=== PATIENT | male | born 1960 | race Caucasian/White ===

== ENCOUNTER → 2019-09-26 20:07 | Outpatient (CLI) | payer OTHER, SELFPAY | PROVIDERS: Visit Provider Physician Assistant | DX: J02.9 Acute pharyngitis, unspecified (principal) | CPT/HCPCS: 87070; 87077; 87185 ==

== ENCOUNTER 2021-03-08 18:04 | Emergency (ER) | payer OTHER, SELFPAY ==
[2021-03-08] VITALS (85 sets, daily range): BP systolic 106–172; BP diastolic 65–97; PULSE 71–223; RESP 12–31; TEMP 35.6; O2SAT 96–99
--- NOTE | 2021-03-08 18:21 | DI.RAD.S_ITS ---
PROCEDURE: XR CHEST 1V INDICATIONS: chest pain TECHNIQUE: One view of the chest was acquired. COMPARISON: None. FINDINGS: Surgical changes and devices: None. Lungs and pleura: Lungs are clear. No pleural effusions or pneumothorax. Mediastinum: Mediastinal contours appear normal. Heart size is normal. Bones and chest wall: No suspicious bony lesions. Overlying soft tissues appear unremarkable. IMPRESSION: No acute cardiopulmonary pathology. Dictated by: Aditya Soler M.D. on 03/08/2021 at 18:44 Approved by: Aditya Soler M.D. on 03/08/2021 at 18:44
[2021-03-08] MEDS: propofoL 200 MG/20 ML VIAL IV (18:23)
[2021-03-08 18:32] LABS: Alanine Aminotransferase 29 IU/L (<50); Albumin 4.5 g/dL (3.5-5.0); Albumin Globulin Ratio 1.7 (1.0-2.8); Alkaline Phosphatase 102 U/L (38-126); Aspartate Aminotransferase 24 IU/L (17-59); BUN Creatinine Ratio 23.1 (6-22); Bilirubin Total 0.4 mg/dL (0.2-1.3); Blood Urea Nitrogen 30 mg/dL (9-20); Calcium 9.7 mg/dL (8.4-10.2); Carbon Dioxide 24 mmol/L (22-32); Chloride 107 mmol/L (98-107); Creatine Kinase 114 U/L (55-170); Estimated Glomerular Filt Rate 55.9 mL/min (>60); Globulin 2.7 g/dL (1.7-4.1); Glucose 229 mg/dL (80-110); HEMOLYSIS < 15 (0-50); Lipase 72 U/L (23-300); Potassium 4.7 mmol/L (3.4-5.1); Sodium 142 mmol/L (137-145); Total Protein 7.2 g/dL (6.3-8.2)
[2021-03-08] MEDS: ADENOSINE 6 MG/2 ML VIAL 18 MG IV (18:32)
[2021-03-08 18:34] LABS: Add Manual Diff / Slide Review NO; Basophils Absolute Auto 100 /uL (0-100); Basophils Percent Auto 0.7 % (0-2); Eosinophils Absolute Auto 500 /uL (0-450); Eosinophils Percent Auto 3.6 % (2-4); Hematocrit 45.4 % (41-53); Hemoglobin 15.2 g/dL (13.5-17.5); Lymphocytes Absolute Auto 1500 /uL (1100-4500); Mean Corpuscular HGB Conc 33.5 % (30-36); Mean Corpuscular Hemoglobin 31.5 PG (26-34); Mean Corpuscular Volume 93.9 fL (80-100); Monocytes Absolute Auto 1200 /uL (0-900); Monocytes Percent Auto 9.4 % (3-14); Neutrophils Absolute Auto 9500 /uL (1500-7000); Neutrophils Percent Auto 74.3 % (50-75); Platelet Count 234 X10^3/uL (150-400); Red Blood Cell Count 4.83 X10^6/uL (4.5-5.9); Red Cell Distribution Width 13.6 % (11.6-14.8); White Blood Cell Count 12.8 X10^3/uL (4.5-11.0)
[2021-03-08 18:44] LABS: Troponin I 0.042 ng/mL (0.01-0.034)
[2021-03-08 18:47] LABS: CKMB % Relative Index 1.9 % (1.5-5.0)
[2021-03-08 19:20] LABS: COVID19 -Nasal RAPID Negative (Negative)
[2021-03-08 20:12] LABS: Magnesium 1.6 mg/dL (1.6-2.3)
[2021-03-08 20:27] LABS: UR Morphine/Opiate cutoff 300 Negative (Negative); Ur Creatinine Normal (Normal); Ur Specific Gravity Normal (Normal); Urine Amphetamines Negative (Negative); Urine Barbiturates Negative (Negative); Urine Benzodiazepines Negative (Negative); Urine Cocaine Negative (Negative); Urine MDMA Negative (Negative); Urine Methadone Negative (Negative); Urine Methamphetamines Negative (Negative); Urine Oxycodone Negative (Negative); Urine Phencyclidine Negative (Negative); Urine Tetrahydrocannabinol Negative (Negative); Urine Tricyclic Antidepressant Negative (Negative); Urine pH Normal (Normal)
--- NOTE | 2021-03-08 20:31 | ED.ARRPALP ---
HPI - Arrhythmia/Palpitations General Chief Complaint: Arrhythmia/Palpitations Stated Complaint: FAST HEART RATE SWEATING Time Seen by Provider: 03/08/21 18:05 Source: patient Mode of arrival: Family Vehicle Limitations: no limitations History of Present Illness HPI narrative: 60-year-old gentleman with a history of insulin-dependent type 2 diabetes, hypertension, hyperlipidemia and no prior cardiac events comes in complaining of palpitations with occasional dizziness that had been going on for approximately hour prior to arrival. He denies chest pain does note a bit of diaphoresis, no nausea, no dyspnea or orthopnea. Does not note that he had been feeling worse throughout the day has not been having increasing exertional dyspnea or other types of chest pain. He has got no recent fevers, cough, chills, abdominal pain, vomiting, diarrhea. Related Data Home Medications Medication Instructions Recorded Confirmed glimepiride PO 09/26/19 09/26/19 lisinopril PO 09/26/19 09/26/19 metformin PO 09/26/19 09/26/19 omeprazole PO 09/26/19 09/26/19 pravastatin PO 09/26/19 09/26/19 Allergies Allergy/AdvReac Type Severity Reaction Status Date / Time No Known Drug Allergies Allergy Verified 03/08/21 18:25 Review of Systems Review of Systems Narrative: Remainder of complete review of systems is otherwise unremarkable except for that included in the HPI. Patient History Medical History Diabetes Hyperlipidemia Hypertension Sinusitis Ventricular tachycardia Social History Smoking Status: Current every day smoker Smoking Status: Current every day smoker tobacco type: cigarettes alcohol intake frequency: 0-2 drinks per day Substance Use Type: does not use Exam Narrative Exam Narrative: General: Pale, mildly diaphoretic but Able to give a complete and coherent history. Well-nourished well-developed HEENT: Moist mucous membranes, normal sclera with reactive pupils, Neck: No JVD, supple Respiratory: Lungs are clear to auscultation, no wheezing no rales no rhonchi. Full and symmetrical air movement Cardiac: Very rapid rate, to rapid for further evaluation Abdomen: Soft, nontender, good bowel tones, no flank pain Skin: Pale with mild diaphoresis Neurologic: Grossly neurologically intact with no obvious asymmetries or abnormalities Extremities: No trauma, well perfused Psych: Cooperative, appropriate insight and affect Initial Vital Signs Initial Vital Signs: Vital Signs Temperature 96.0 F L 03/08/21 18:05 Pulse Rate 223 H 03/08/21 18:05 Respiratory Rate 24 03/08/21 18:05 Blood Pressure 125/74 03/08/21 18:05 Pulse Oximetry 97 03/08/21 18:05 Procedures Cardioversion Time of Cardioversion: 06:23 Indication: Unstable ventricular tachycardia Stability: Unstable Number of attempts (shocks): 1 Joules used: 120 Cardiac rhythm post-cardioversion: Sinus rhythm Procedural Sedation Time of procedure: 18:23 Consent signed: No Time out performed: Yes Indication: cardioversion (Unstable ventricular tachycardia) ASA Class: II Mallampati Airway Classification: Class II Time of Last PO Intake: 12:30 Preparation: surveillance system monitor applied, pulse oximeter, capnometry used, supplemental O2 applied, suction/airway equipment at bedside and IV secured IV Propofol dose (mg): 60 Intraservice time/total sedation time (min): 8 ED Sedation Level: Moderate (Concious) Patient Tolerated Procedure: Well Complications: none Course Course Course Narrative: 830 reviewed care with Cardiology, Dr. Waldrop, agreed with transfer to facility with medical laboratory technical officer capacity, continue trending troponins and heparin [facility] beds [facility] beds 935pm [facility], pcu beds. Discussed care with Dr Mildred Andre, hospitalist. Accepts care. 2nd trop pending. Will let her know if increasing significantly Orders Ordered: Discontinued Medications Heparin Sodium (Porcine) (Heparin 5,000 Unit/Ml Vial) 5,000 unit IV NOW ONE Stop: 03/08/21 21:04 Last Admin: 03/08/21 21:27 Dose: 5,000 unit Documented by: SAUD Heparin Sodium/Dextrose (Heparin Drip) 25,000 unit in 500 mls @ 20 mls/hr IV CONT KENNEDY; Protocol Last Titration: 03/08/21 22:55 Dose: 1,000 units/hr, 20 mls/hr Documented by: Admin: 03/08/21 21:33 Dose: 1,000 units/hr, 20 mls/hr Documented by: SAUD Lorazepam (Lorazepam 0.5 Mg Tablet) 0.5 mg PO NOW ONE Stop: 03/08/21 22:26 Last Admin: 03/08/21 22:34 Dose: 0.5 mg Documented by: SAUD Metoprolol Tartrate (Metoprolol Ir 25 Mg Tablet) 25 mg PO NOW ONE Stop: 03/08/21 21:05 Last Admin: 03/08/21 21:26 Dose: 25 mg Documented by: SAUD Nicotine (Nicotine 21 Mg Patch) 21 mg TOP NOW ONE Stop: 03/08/21 22:21 Vital Signs Vital signs: Vital Signs - 8 hr 03/08/21 22:30 03/08/21 22:32 03/08/21 22:34 Pulse Rate 82 80 75 Respiratory Rate 22 28 H 18 Blood Pressure 172/97 H 03/08/21 22:36 03/08/21 22:38 03/08/21 22:40 Pulse Rate 76 73 76 Respiratory Rate 21 16 31 H Blood Pressure MDM - Arrhythmia/Palpitations Lab Data Result diagrams: 03/08/21 18:16 03/08/21 18:16 Labs: Lab Results 03/08/21 03/08/21 03/08/21 Range/Units 18:16 18:16 18:16 WBC 12.8 H (4.5-11.0) X10^3/uL RBC 4.83 (4.5-5.9) X10^6/uL Hgb 15.2 (13.5-17.5) g/dL Hct 45.4 (41-53) % MCV 93.9 (80-100) fL MCH 31.5 (26-34) PG MCHC 33.5 (30-36) % RDW 13.6 (11.6-14.8) % Plt Count 234 (150-400) X10^3/uL Neut % (Auto) 74.3 (50-75) % Lymph % (Auto) 12.0 L (25-40) % [place] % (Auto) 9.4 (3-14) % Eos % (Auto) 3.6 (2-4) % Baso % (Auto) 0.7 (0-2) % Neut # (Auto) 9500 H (3617-0906) /uL Lymph # (Auto) 1500 (9229-9444) /uL [place] # (Auto) 1200 H (0-900) /uL Eos # (Auto) 500 H (0-450) /uL Baso # (Auto) 100 (0-100) /uL Sodium 142 (137-145) mmol/L Potassium 4.7 (3.4-5.1) mmol/L Chloride 107 (98-107) mmol/L Carbon Dioxide 24 (22-32) mmol/L BUN 30 H (9-20) mg/dL Creatinine 1.30 H (0.66-1.25) mg/dL Estimated GFR 55.9 L (>60) mL/min BUN/Creatinine Ratio 23.1 H (6-22) Glucose 229 H (80-110) mg/dL Calcium 9.7 (8.4-10.2) mg/dL Magnesium 1.6 (1.6-2.3) mg/dL Total Bilirubin 0.4 (0.2-1.3) mg/dL AST 24 (17-59) IU/L ALT 29 (<50) IU/L Alkaline Phosphatase 102 (38-126) U/L Total Creatine Kinase 114 (55-170) U/L CK-MB (CK-2) 2.20 (<2.37) ng/mL CK-MB (CK-2) Rel Index 1.9 (1.5-5.0) % Troponin I 0.042 H (0.01-0.034) ng/mL Total Protein 7.2 (6.3-8.2) g/dL Albumin 4.5 (3.5-5.0) g/dL Globulin 2.7 (1.7-4.1) g/dL Albumin/Globulin Ratio 1.7 (1.0-2.8) Lipase 72 (23-300) U/L TSH (0.47-4.68) uIU/mL U Opiates 300ng/mL cut (Negative) Ur Oxycodone Screen (Negative) Urine Methadone Screen (Negative) Ur Barbiturates Screen (Negative) U Tricyclic Antidepress (Negative) Ur Phencyclidine Scrn (Negative) Ur Amphetamines Screen (Negative) U Methamphetamines Scrn (Negative) Ur MDMA Scrn (Ecstasy) (Negative) U Benzodiazepines Scrn (Negative) Urine Cocaine Screen (Negative) U Marijuana (THC) Screen (Negative) SARS-CoV-2 (PCR) (Negative) 03/08/21 03/08/21 03/08/21 Range/Units 18:16 18:19 20:04 WBC (4.5-11.0) X10^3/uL RBC (4.5-5.9) X10^6/uL Hgb (13.5-17.5) g/dL Hct (41-53) % MCV (80-100) fL MCH (26-34) PG MCHC (30-36) % RDW (11.6-14.8) % Plt Count (150-400) X10^3/uL Neut % (Auto) (50-75) % Lymph % (Auto) (25-40) % [place] % (Auto) (3-14) % Eos % (Auto) (2-4) % Baso % (Auto) (0-2) % Neut # (Auto) (5532-1244) /uL Lymph # (Auto) (1724-4381) /uL [place] # (Auto) (0-900) /uL Eos # (Auto) (0-450) /uL Baso # (Auto) (0-100) /uL Sodium (137-145) mmol/L Potassium (3.4-5.1) mmol/L Chloride (98-107) mmol/L Carbon Dioxide (22-32) mmol/L BUN (9-20) mg/dL Creatinine (0.66-1.25) mg/dL Estimated GFR (>60) mL/min BUN/Creatinine Ratio (6-22) Glucose (80-110) mg/dL Calcium (8.4-10.2) mg/dL Magnesium (1.6-2.3) mg/dL Total Bilirubin (0.2-1.3) mg/dL AST (17-59) IU/L ALT (<50) IU/L Alkaline Phosphatase (38-126) U/L Total Creatine Kinase (55-170) U/L CK-MB (CK-2) (<2.37) ng/mL CK-MB (CK-2) Rel Index (1.5-5.0) % Troponin I (0.01-0.034) ng/mL Total Protein (6.3-8.2) g/dL Albumin (3.5-5.0) g/dL Globulin (1.7-4.1) g/dL Albumin/Globulin Ratio (1.0-2.8) Lipase (23-300) U/L TSH 2.42 (0.47-4.68) uIU/mL U Opiates 300ng/mL cut Negative (Negative) Ur Oxycodone Screen Negative (Negative) Urine Methadone Screen Negative (Negative) Ur Barbiturates Screen Negative (Negative) U Tricyclic Antidepress Negative (Negative) Ur Phencyclidine Scrn Negative (Negative) Ur Amphetamines Screen Negative (Negative) U Methamphetamines Scrn Negative (Negative) Ur MDMA Scrn (Ecstasy) Negative (Negative) U Benzodiazepines Scrn Negative (Negative) Urine Cocaine Screen Negative (Negative) U Marijuana (THC) Screen Negative (Negative) SARS-CoV-2 (PCR) Negative (Negative) 03/08/21 Range/Units 21:15 WBC (4.5-11.0) X10^3/uL RBC (4.5-5.9) X10^6/uL Hgb (13.5-17.5) g/dL Hct (41-53) % MCV (80-100) fL MCH (26-34) PG MCHC (30-36) % RDW (11.6-14.8) % Plt Count (150-400) X10^3/uL Neut % (Auto) (50-75) % Lymph % (Auto) (25-40) % [place] % (Auto) (3-14) % Eos % (Auto) (2-4) % Baso % (Auto) (0-2) % Neut # (Auto) (5882-6969) /uL Lymph # (Auto) (9993-9888) /uL [place] # (Auto) (0-900) /uL Eos # (Auto) (0-450) /uL Baso # (Auto) (0-100) /uL Sodium (137-145) mmol/L Potassium (3.4-5.1) mmol/L Chloride (98-107) mmol/L Carbon Dioxide (22-32) mmol/L BUN (9-20) mg/dL Creatinine (0.66-1.25) mg/dL Estimated GFR (>60) mL/min BUN/Creatinine Ratio (6-22) Glucose (80-110) mg/dL Calcium (8.4-10.2) mg/dL Magnesium (1.6-2.3) mg/dL Total Bilirubin (0.2-1.3) mg/dL AST (17-59) IU/L ALT (<50) IU/L Alkaline Phosphatase (38-126) U/L Total Creatine Kinase (55-170) U/L CK-MB (CK-2) (<2.37) ng/mL CK-MB (CK-2) Rel Index (1.5-5.0) % Troponin I 0.528 H* (0.01-0.034) ng/mL Total Protein (6.3-8.2) g/dL Albumin (3.5-5.0) g/dL Globulin (1.7-4.1) g/dL Albumin/Globulin Ratio (1.0-2.8) Lipase (23-300) U/L TSH (0.47-4.68) uIU/mL U Opiates 300ng/mL cut (Negative) Ur Oxycodone Screen (Negative) Urine Methadone Screen (Negative) Ur Barbiturates Screen (Negative) U Tricyclic Antidepress (Negative) Ur Phencyclidine Scrn (Negative) Ur Amphetamines Screen (Negative) U Methamphetamines Scrn (Negative) Ur MDMA Scrn (Ecstasy) (Negative) U Benzodiazepines Scrn (Negative) Urine Cocaine Screen (Negative) U Marijuana (THC) Screen (Negative) SARS-CoV-2 (PCR) (Negative) Urine Dip Bedside Urine Glucose 250 mg/dl Bedside Urine Bilirubin - Negative Bedside Urine Ketone - Negative Urine Specific [place] 1.020 Bedside Urine Occult Blood - Negative Bedside Urine pH 6 Bedside Urine Protein + 30 Bedside Urine Urobilinogen - Negative Bedside Urine Nitrite - Negative Bedside Urine Leukocytes - Negative Esterase ECG Data Interpretation: #1 18:16 Wide complex tachycardia at a rate of #2 1831 Post cardioversion Sinus tachycardia at a rate of [address] T wave changes Normal axis, normal intervals MDM Narrative Medical decision making narrative: 60-year-old gentleman walks into the emergency department complaining palpitations, diaphoresis and generally not feeling well. States the palpitations and rapid heart rate started approximately an hour prior to arrival. He was not complaining of chest pain. On arrival he was emergently taken back to room 10. With his wide complex tachycardia and no prior EKGs at a rate of essentially to 220, possibility of SVT was entertained and he was given 2 doses of adenosine while simultaneously preparing for emergent cardioversion. With 6 followed by 12 mg of adenosine there was no change at all to rhythm period that point was given a total of 60 mg of propofol and was successfully shock with 120 joules with return to sinus rhythm. Labs did show slightly elevated troponin. Care is reviewed with Cardiology. Recommendation was heparin and hospital admission to trend troponins and will likely need echocardiogram. No beds are available at [facility]. [facility] in [place] does have a bed and patient will be transferred to their hospitalist service for definitive care. Critical Care Time Critical Care Time Critical Care Time: Yes Total Critical Care Time: 34 Attestation: Critical care time is separate from other billable procedures. This critical care time includes consultation with family and other consulting doctors, review of records, and interpretation of data from labs, EKGs and imaging as well as managements of acute cardiac arrhythmia with emergent electrical cardioversion and concern for acute coronary syndrome with elevated troponin Discharge Plan Departure Patient Disposition: [facility] Clinical Impression: Ventricular tachycardia, Elevated troponin I level Prescriptions: No Action metformin PO RF: 0 glimepiride PO RF: 0 lisinopril PO RF: 0 pravastatin PO RF: 0 omeprazole PO RF: 0
[2021-03-08 20:56] LABS: TSH w/ Reflex to FT4 2.42 uIU/mL (0.47-4.68)
[2021-03-08] MEDS: METOPROLOL IR 25 MG TABLET PO (21:26)
[2021-03-08] MEDS: HEPARIN 5,000 UNIT/ML VIAL 5000 UNIT IV (21:27)
[2021-03-08] MEDS: HEPARIN DRIP 25,000 UNIT/500 ML IV.SOLN 20 UNIT IV (21:33)
[2021-03-08 22:10] LABS: Troponin I 0.528 ng/mL (0.01-0.034)
[2021-03-08] MEDS: LORazepam 0.5 MG TABLET PO (22:34)
== END 2021-03-08 22:59 | disposition short-term general hospital (02) ==
PROVIDERS: Emergency Provider Emergency Medicine
DX: I47.2 Ventricular tachycardia (principal); R77.8 Other specified abnormalities of plasma proteins; R42 Dizziness and giddiness; Z20.822 Contact with and (suspected) exposure to COVID-19
CPT/HCPCS: 36415; 71045; 80053; 80305; 81003; 82550; 82553; 83690; 83735; 84443; 84484; 85025; 87635; 92960; 93005; 93010; 96365; 96375; 99285; 99291; C9803; J0153; J1644; J2704

== ENCOUNTER → 2023-06-15 13:34 | Outpatient (CLI) | payer OTHER, SELFPAY ==
--- NOTE | 2023-06-15 13:36 | DI.RAD.S_ITS ---
PROCEDURE: XR FOOT LT MIN 3V INDICATIONS: Left foot injury TECHNIQUE: 3 views of the foot were acquired. COMPARISON: None. FINDINGS: Bones: No fractures or dislocations. No suspicious bony lesions. Soft tissues: No tibiotalar joint effusion. Achilles tendon appears normal. IMPRESSION: No evidence acute bony abnormality. If clinical suspicion and/or symptoms persist, further assessment with repeat plain films, or advanced imaging (e.g., CT, MRI, or bone scan) may be helpful for further assessment. Dictated by: Isidro Raygoza M.D. on 06/15/2023 at 16:24 Approved by: Isidro Raygoza M.D. on 06/15/2023 at 16:24
== END ==
PROVIDERS: PCP Internal Medicine; Referring Provider Nurse Practitioner Family; Visit Provider Nurse Practitioner Family
DX: S90.32XA Contusion of left foot, initial encounter (principal); X58.XXXA Exposure to other specified factors, initial encounter
CPT/HCPCS: 73630

== ENCOUNTER 2023-12-28 12:38 | Emergency (ER) | payer OTHER, SELFPAY ==
[2023-12-28 12:55] VITALS: BP 122/67; PULSE 73; RESP 16; TEMP 36.6; O2SAT 97; BMI 28.8
--- NOTE | 2023-12-28 12:59 | DI.RAD.S_ITS ---
PROCEDURE: XR ELBOW RT MIN 3V INDICATIONS: right elbow pain after hitting on sink TECHNIQUE: 3 views of the elbow were acquired. COMPARISON: None. FINDINGS: Bones: No fractures or dislocations. No suspicious bony lesions. Soft tissues: No elbow joint effusion. No suspicious soft tissue calcifications. IMPRESSION: No acute elbow fracture or significant joint effusion. Dictated by: Aditya Soler M.D. on 12/28/2023 at 14:09 Approved by: Aditya Soler M.D. on 12/28/2023 at 14:09
--- NOTE | 2023-12-28 15:22 | ED_ITS ---
HPI - Extremity Injury (Upper) <Dixie Christensen PA-C - Last Filed: 12/28/23 16:57> General Chief Complaint: Extremity Injury, Upper Stated Complaint: fall, arm injury Time Seen by Provider: 12/28/23 15:10 Source: patient Mode of arrival: Ambulatory History of Present Illness HPI narrative: 63-year-old male presents to the ED status post a right elbow injury sustained 3 days prior to arrival. Patient states that he sustained a mechanical fall in the bathroom, slipping and that his right elbow caught the sink. Since then patient has been complaining of right elbow pain. There is full range of motion. No numbness, tingling, weakness. Related Data Home Medications Medication Instructions Recorded Confirmed glimepiride PO 09/26/19 06/15/23 metformin PO 09/26/19 06/15/23 aspirin 81 mg tablet,delayed 81 mg PO DAILY 06/15/23 06/15/23 release metoprolol tartrate 1 tab PO BID 06/15/23 06/15/23 multivitamin (Multiple Vitamins 1 tab PO DAILY 06/15/23 06/15/23 tablet) Allergies Allergy/AdvReac Type Severity Reaction Status Date / Time No Known Drug Allergies Allergy Verified 12/28/23 12:59 Review of Systems <Dixie Christensen PA-C - Last Filed: 12/28/23 16:57> Constitutional Constitutional: Denies chills, Denies fatigue, Denies fever(s), Denies frequent falls, Denies lethargy and Denies weakness Eyes Eyes: Denies change in vision, Denies eye discharge, Denies irritation and Denies loss of vision ENT Ears, Nose, Mouth, and Throat: Denies change in voice, Denies dizziness, Denies neck pain, Denies sore throat and Denies throat swelling Cardiovascular Cardiovascular: Denies chest pain, Denies irregular heart rhythm, Denies lightheadedness, Denies palpitations, Denies dyspnea, Denies dyspnea on exertion and Denies orthopnea Respiratory Respiratory: Denies cough, Denies dyspnea, Denies dyspnea on exertion and Denies wheezing Gastrointestinal Gastrointestinal: Denies abdominal pain, Denies change in bowel habits, Denies diarrhea, Denies nausea and Denies vomiting Musculoskeletal Musculoskeletal: Denies neck pain and Denies numbness Comments: Right elbow pain Integumentary/Breasts Skin/Breast: Denies pruritus, Denies erythema, Denies rash and Denies wounds Neurologic Neurologic: Denies behavioral changes, Denies confusion, Denies dizziness, Denies frequent falls, Denies loss of vision, Denies numbness and Denies weakness Psychiatric Psychiatric: Denies anxiety, Denies behavioral changes, Denies confusion, Denies depression, Denies homicidal ideation and Denies suicidal ideation Endocrine Endocrine: Denies fatigue, Denies flushing and Denies palpitations Hematologic/Lymphatic Hematologic/Lymphatic: Denies easy bruising Allergic/Immunologic Allergic/Immunologic: Denies urticaria, Denies throat swelling and Denies wheezing Patient History <Dixie Christensen PA-C - Last Filed: 12/28/23 16:57> Medical History Hyperlipidemia Hypertension Diabetes Ventricular tachycardia Sinusitis Social History Smoking Status: Current every day smoker Smoking Status: Current every day smoker tobacco type: cigarettes alcohol intake frequency: 0-2 drinks per day Substance Use Type: does not use Exam <Dixie Christensen PA-C - Last Filed: 12/28/23 16:57> Narrative Exam Narrative: Const General:?cooperative, healthy appearing and comfortable [facility] Head:?normal to inspection Ears:?hearing grossly normal bilaterally Nose:?external nose normal Face and sinus:?normal facial exam and sinuses nontender Mouth:?oral mucosae normal Throat:?posterior oropharynx normal Eyes General:?appearance normal, both eyes and all related structures Neck Neck:?normal visual inspection and no lymphadenopathy noted Resp Effort & Inspection:?normal respiratory effort Auscultation:?clear to auscultation bilaterally Cardio Rate:?regular rate Rhythm:?regular rhythm Musculoskeletal There is swelling, redness, tenderness to palpation of the right elbow. There is full range of motion. Strength and sensation is intact. Patient is neurovascularly intact. Neuro General:?patient alert, patient awake and patient oriented x3 Initial Vital Signs Initial Vital Signs: Vital Signs Temperature 97.8 F 12/28/23 12:55 Pulse Rate 73 12/28/23 12:55 Respiratory Rate 16 12/28/23 12:55 Blood Pressure 122/67 12/28/23 12:55 Pulse Oximetry 97 12/28/23 12:55 Oxygen Delivery Method Room Air 12/28/23 12:55 <Paige Tobias MD - Last Filed: 12/28/23 17:04> Initial Vital Signs Initial Vital Signs: Vital Signs Temperature 97.8 F 12/28/23 12:55 Pulse Rate 73 12/28/23 12:55 Respiratory Rate 16 12/28/23 12:55 Blood Pressure 122/67 12/28/23 12:55 Pulse Oximetry 97 12/28/23 12:55 Oxygen Delivery Method Room Air 12/28/23 12:55 Course <Dixie Christensen PA-C - Last Filed: 12/28/23 16:57> Orders Ordered: ED Orders 12/28/23 12:59 XR elbow RT min 3V Stat Vital Signs Vital signs: Vital Signs - 8 hr 12/28/23 12:55 12/28/23 15:51 Temperature 97.8 F 98 F Pulse Rate 73 73 Respiratory Rate 16 16 Blood Pressure 122/67 114/59 L Pulse Oximetry 97 97 Oxygen Delivery Method Room Air Room Air <Paige Tobias MD - Last Filed: 12/28/23 17:04> Orders Ordered: ED Orders 12/28/23 12:59 XR elbow RT min 3V Stat Vital Signs Vital signs: Vital Signs - 8 hr 12/28/23 12:55 12/28/23 15:51 Temperature 97.8 F 98 F Pulse Rate 73 73 Respiratory Rate 16 16 Blood Pressure 122/67 114/59 L Pulse Oximetry 97 97 Oxygen Delivery Method Room Air Room Air MDM - Extremity Injury (Upper) <Dixie Christensen PA-C - Last Filed: 12/28/23 16:57> MDM Narrative Medical decision making narrative: 63-year-old male presents to the ED status post a right elbow injury sustained 3 days prior to arrival. X-ray was obtained to rule out fracture/dislocation. X- ray With no acute findings. Patient's symptoms consistent with a musculoskeletal sprain/strain/contusion. Recommend continuing naproxen. Also recommend lidocaine patches, heat packs. Recommend follow-up with PCP as soon as possible. ED return precautions discussed with patient. Patient verbalized understanding. Medical records reviewed: Yes Discharge Plan Departure Patient Disposition: Home Clinical Impression: Elbow injury Qualifiers: Encounter type: initial encounter Laterality: right Qualified Code(s): S59.901A - Unspecified injury of right elbow, initial encounter Instructions: DI for Elbow Sprain Activity Restrictions/Additional Instructions: You were evaluated in the ED today for an elbow injury. The x-ray did not show any fractures or dislocations. It appears that your discomfort is from a spr ain/strain/contusion to the elbow. You may continue to take naproxen as you currently are. You may apply heat packs, lidocaine patches for pain relief. Please follow-up with your PCP as soon as possible. Return to the ED if you have worsening symptoms, numbness, tingling, weakness. Prescriptions: No Action metformin PO glimepiride PO multivitamin [Multiple Vitamins] Tablet 1 tab PO DAILY aspirin 81 mg tablet,delayed release (DR/EC) 81 mg PO DAILY metoprolol tartrate 1 tab PO BID Referrals: Alberto Delgadillo MD [Primary Care Provider] - Stand Alone Forms: Patient Portal/API ED Sign-out <Paige Tobias MD - Last Filed: 12/28/23 17:04> Cosign ED Attending Cosignature Attestation: I was immediately available in the department for consultation throughout this patient's visit. Paige Tobias MD
--- NOTE | 2023-12-28 15:29 | PC.NURSE ---
Pt states he hit his right elbow two days ago when he slipped and hit it on a sink. pt denies hitting his head. right elbow more swollen than left.
[2023-12-28 15:51] VITALS: BP 114/59; PULSE 73; RESP 16; TEMP 36.6; O2SAT 97
== END 2023-12-28 15:53 | disposition home or self-care (01) ==
PROVIDERS: Emergency Provider Student in an Organized Health Care Education/Training Program; PCP Internal Medicine
DX: S59.901A Unspecified injury of right elbow, initial encounter (principal); W01.198A Fall on same level from slipping, tripping and stumbling with subsequent striking against other object, initial encounter
CPT/HCPCS: 73080; 99281; 99283

== ENCOUNTER → 2025-04-26 09:32 | Outpatient (CLI) | payer OTHER, SELFPAY ==
--- NOTE | 2025-04-28 07:58 | DI.NM.S_ITS ---
DATE OF SERVICE: 04/26/2025 NUCLEAR CARDIOLOGY MYOCARDIAL PERFUSION STUDY PROCEDURE: Exercise treadmill stress and rest myocardial perfusion imaging with gating to assess ejection fraction and regional wall motion. ORDERING PROVIDER: Carmel Soto M.D. INDICATIONS: The patient is a 64-year-old male with a history of ventricular tachycardia and stenting to the RCA in 2020 with recent new- onset atrial fibrillation. CARDIAC STRESS: The patient was able to exercise for 4 minutes 18 seconds on a standard Bry protocol suggesting moderate-severely reduced exercise capacity with an KADEEM of +38%, achieving 7.0 METs. He had a normal heart rate response to exercise, achieving a maximum heart rate of 165 bpm (107% of his predicted maximum). He had a borderline hypertensive blood pressure response with a resting blood pressure of 150/88, increasing to a maximum of 200/96. He had significant dyspnea but no chest discomfort. His resting ECG shows sinus rhythm with fairly normal ST segments and occasional PVCs. With stress, he develops 1 to 1.5 mm of flat to upsloping ST depression concerning for, but nonspecific for ischemia, and continued to have occasional PVCs. At 3 minutes into recovery, he developed probable atrial flutter with variable conduction with occasional spontaneous conversion to sinus rhythm. He remained asymptomatic. At 3 minutes 20 seconds of exercise at a rate of 140 bpm, 25.3 mCi of technetium-99m Myoview was injected and he was imaged 15 minutes later using a gated SPECT acquisition protocol. The day prior while at rest, he had been injected with 27.1 mCi of technetium-99m Myoview and was imaged 15 minutes later, again using a gated SPECT acquisition protocol. FINDINGS: 1. Raw data: There is fairly good myocardial tracer uptake. The lung/heart ratio is normal at 0.28 with a normal TID ratio of 0.64. 2. Quantitated gated SPECT: Post-stress gating appears inaccurate with occasional double counting, likely due to his atrial fibrillation, and thus volumetric estimates are unreliable, yet systolic function appears normal with a calculated ejection fraction of 55%. The resting images show more appropriate gating and an ejection fraction of 66% without focal wall motion abnormality but a mildly increased resting end-diastolic volume of 131 mL. 3. Myocardial perfusion imaging: Post-stress supine images show fairly normal myocardial perfusion without any concerning perfusion defects, supported by normal perfusion imaging in the prone position. The resting images show a similar perfusion pattern without any clear areas of improvement. IMPRESSION: 1. Normal myocardial perfusion study for ischemia. 2. No concerning perfusion defects to suggest myocardial ischemia or previous myocardial infarction. 3. Probable normal left ventricular systolic function although post- stress ejection fraction calculation is compromised by inaccurate gating due to atrial fibrillation. Left ventricular volumes visually appear normal and there are no regional wall motion abnormalities seen. 4. Moderate-severely reduced exercise capacity without angina. He developed some nonspecific ST depression, and was initially in sinus rhythm but developed atrial fibrillation 3 minutes into recovery with a relatively rapid ventricular response but remained asymptomatic and with intermittent conversion to sinus rhythm. Farhat Talamantes - RS/fn/MO doc#: [id number]/job#: [id number] dd: 04/27/2025 16:43:00 dt: 04/27/2025 17:01:00 DICTATING MD/COPIES TO: Davin Tao MD; Carmel Soto M.D. COPIES MNE: RAMIRO;
== END ==
LOC: NUCM 09:32
PROVIDERS: Referring Provider Internal Medicine Cardiovascular Disease; Visit Provider Internal Medicine Cardiovascular Disease
DX: I25.10 Atherosclerotic heart disease of native coronary artery without angina pectoris (principal); I48.91 Unspecified atrial fibrillation; Z95.5 Presence of coronary angioplasty implant and graft
CPT/HCPCS: 78452; 93017; A9502